=== PATIENT | female | born 1995 | race Two or more races ===

== ENCOUNTER 2019-04-17 14:12 | Emergency (ER) | payer SELFPAY ==
[~2019-04-17] VITALS: Ht 154.9 cm; Wt 45.5 kg
[2019-04-17] MEDS ORDERED: normal saline 1000ML IV soln IVB ONE (14:45)
[2019-04-17 15:06] LABS: CLARITY,URINE CLOUDY (Clear); COLOR,URINE YELLOW (Yellow); GLUCOSE, URINE NEGATIVE (Neg); KETONES,URINE NEGATIVE (Neg); LEUKOCYTE ESTERASE ,URINE LARGE (Neg); NITRITES, URINE NEGATIVE (Neg); OCCULT BLOOD,URINE MODERATE (Neg); PROTEIN,URINE TRACE mg/dl (Neg)
[2019-04-17 15:07] LABS: UA COLLECTION TYPE CLN CATCH MIDSTREAM
[2019-04-17 15:11] LABS: URINE HCG NEGATIVE (NEG)
[2019-04-17 15:16] LABS: BASOPHILS % (AUTO) 0.3 % (0-1); EOSINOPHILS % (AUTO) 0.8 % (0-6); HEMATOCRIT 42.8 % (35.0-45.0); LYMPHOCYTES # (AUTO) 0.8 X10'3 (1.1-4.8); LYMPHOCYTES % (AUTO) 15.9 % (21-51); MEAN CORPUSCULAR HEMOGLOBIN 30.6 PG (27.0-31.0); MEAN CORPUSCULAR HGB CONC 32.7 g/dL (33.0-36.5); MEAN CORPUSCULAR VOLUME 93.5 FL (78-98); MEAN PLATELET VOLUME 7.4 FL (7.4-10.4); MONOCYTES # (AUTO) 0.4 X10'3 (0-0.9); MONOCYTES % (AUTO) 7.5 % (2-12); NEUTROPHILS % (AUTO) 75.5 % (42-75); PLATELET COUNT 164 X10'3 (140-440); RED BLOOD COUNT 4.57 X10'6 (4.20-5.60); RED CELL DISTRIBUTION WIDTH 14.8 % (11.5-14.5); WHITE BLOOD COUNT 5.3 X10'3 (4.5-11.0)
[2019-04-17 15:17] LABS: BACTERIA,URINE 3+ /HPF (Neg); MUCUS STRANDS FEW /LPF (Neg); SQUAMOUS EPITHELIAL CELL,UR MANY /LPF (FEW); WBC,URINE 20-30 /HPF (0-4)
[2019-04-17 15:19] LABS: TRICHOMONAS,URINE FEW /HPF (NEGATIVE)
[2019-04-17 15:26] LABS: ALANINE AMINOTRANSFERASE 20 U/L (12-78); ALBUMIN 3.4 G/DL (3.4-5.0); ALBUMIN/GLOBULIN RATIO 0.9 (1.1-1.5); ALKALINE PHOSPHATASE 64 IU/L (46-116); ANION GAP 8 (8-16); ASPARTATE AMINO TRANSFERASE 18 U/L (10-37); BILIRUBIN,TOTAL 0.7 MG/DL (0.1-1.0); BLOOD UREA NITROGEN 10 MG/DL (7-18); BUN/CREATININE RATIO 13.3 (6.6-38.0); CALCIUM 8.3 MG/DL (8.5-10.1); CHLORIDE 103 MMOL/L (99-107); CREATININE 0.75 MG/DL (0.40-0.90); GLUCOSE 92 MG/DL (70-104); POTASSIUM 3.6 MMOL/L (3.5-5.1); SODIUM 136 MMOL/L (135-145); TOTAL CARBON DIOXIDE 25.1 MMOL/L (24-32); eGFR > 90 ML/MIN
[2019-04-17] MEDS ORDERED: CEPH-572 PO (15:32)
[2019-04-17] MEDS ORDERED: CefTRIAXone/D5W-Rocephin 1gm 50 ML IV ONE (15:35)
[2019-04-17 16:35] VITALS: BP 99/68
--- NOTE | 2019-04-17 16:38 | NUR ---
UPON DC PT STATED SHE DID NOT WANT TO BE DCD SHE WANTED TO GO "UPSTAIRS LIKE I DID LAST TIME I WAS SICK" PT INFORMED SHE WAS NOT BEING ADMITTED AND SHE HAS ALLREADY SIGNED HER DC INSTRUCTION AND SHE IS DCD. SECURITY CALLED TO ESCORT OUT OF THE ER.
== END 2019-04-17 16:42 | disposition home or self-care (01) ==
LOC: ER 14:13
DX: N39.0 Urinary tract infection, site not specified (principal); R11.2 Nausea with vomiting, unspecified; Z56.0 Unemployment, unspecified
CPT/HCPCS: 36415; 80053; 81001; 81025; 85025; 96365; 99283; J0696; J7030